=== PATIENT | female | born 1950 | race Caucasian/White ===

== ENCOUNTER → 2025-07-28 | Outpatient (REF) | payer MEDICARE, OTHER ==
[~2025-07-28] MED LIST: IOPAMIDOL 370 MG/ML 100 ML INFUS..BTL INJ ONE; SODIUM CHLORIDE 0.9% 0 ML ONE; SODIUM CHLORIDE 0.9% 100 ML ONE
[2025-07-28 10:39] LABS: EST GLOMERULAR FILTRATION RATE 61.0 ML/MIN (>=60)
== END ==
LOC: CT 09:34
PROVIDERS: ATTEND Internal Medicine Cardiovascular Disease
DX: I65.22 Occlusion and stenosis of left carotid artery (principal)
CPT/HCPCS: 36415; 70498; 82565; 84520; J7050; Q9967